=== PATIENT | male | born 1975 | race Caucasian/White ===

== ENCOUNTER 2019-07-04 09:41 | Emergency (ER) | payer OTHER ==
[~2019-07-04] VITALS: Ht 175.3 cm; Wt 96.6 kg
--- NOTE | 2019-07-04 09:58 | NUR ---
ED Nurse Note: pt walked in due to left foot pain, denies head trauma. pt stated he fell on a stair and landed on his ankle and left knee. pt able to walk with limping gait.
[2019-07-04 10:02] VITALS: BP 164/92
--- NOTE | 2019-07-04 10:15 | NUR ---
ED Nurse Note: research instrumentation technician on bedside
--- NOTE | 2019-07-04 10:20 | NUR ---
ED Nurse Note: pt was medicated as ordered by hillary. pt able to tolerate po meds. will continue to monitor
--- NOTE | 2019-07-04 10:44 | NUR ---
Note [place] in EDM - 07/04/19 at 1105 by JOSÉ MANUEL ER DISCHARGE NOTE: Patient is cleared to be discharged per ERMD, pt is aox4, on room air, with stable vital signs. pt was given dc and prescription instructions, pt was able to verbalize understanding, pt id band removed without complications. pt is able to ambulate with steady gait. pt took all belongings.
--- NOTE | 2019-07-04 10:47 | Diagnostic Imaging Report ---
EXAM: XR Left Ankle Complete, 3 or More Views CLINICAL HISTORY: TRAUMA TECHNIQUE: Frontal, lateral and oblique views of the left ankle. COMPARISON: Left foot x-rays obtained the same date. FINDINGS: Bones/joints: Unremarkable. No visible displaced ankle fracture or dislocation. Ankle mortise and talar dome appear unremarkable. Visualized joint spaces appear unremarkable. Soft tissues: Mild bimalleolar soft tissue swelling. No radiodense foreign bodies. No soft tissue gas lucencies. IMPRESSION: Mild bimalleolar soft tissue swelling.
--- NOTE | 2019-07-04 10:48 | Diagnostic Imaging Report ---
EXAM: XR Left Foot Complete, 3 or More Views CLINICAL HISTORY: TRAUMA TECHNIQUE: Frontal, lateral and oblique views of the left foot. COMPARISON: No relevant prior studies available. FINDINGS: Bones/joints: Unremarkable. No visible displaced fracture. No dislocation. No osseous erosions. Visualized joint spaces appear unremarkable. Soft tissues: Mild soft tissue swelling throughout the foot. No radiodense foreign bodies. No soft tissue gas lucencies. IMPRESSION: Mild soft tissue swelling throughout the foot. No acute displaced fracture identified. If there is continued clinical concern, follow-up x- rays, or cross-sectional imaging with CT or MRI may be considered. <MYCVCSECTION> Critical Value [employer] 07/04/19 10:52 Call From [facility] Donovan Oliva MD on 07/04 10:52 (-07: 00)
[2019-07-04] MEDS ORDERED: IBUPROFEN600 MG ORAL (11:02)
[2019-07-04 11:19] VITALS: BP 145/90
--- NOTE | 2019-07-04 11:19 | NUR ---
ER DISCHARGE NOTE: Patient is cleared to be discharged per ERMD, pt is aox4, on room air, with stable vital signs. pt was given dc and prescription instructions, pt was able to verbalize understanding, pt id band removed without complications. pt is able to ambulate with steady gait. pt took all belongings.
--- NOTE | 2019-07-04 11:34 | Emergency Room Report ---
History of Present Illness General Chief Complaint: Pain Source: Patient, Medical Record Present Illness HPI Patient presents with complaints of left foot and ankle pain reports that just prior to arrival this morning While going down few steps he missed the last step and essentially twisted his left foot Denies any knee pain denies any pelvic pain denies any lapse of consciousness pain is worse with walking and bearing weight describes the pain is 5 out of 10 Denies any neuropathy Or loss of consciousness Allergies: Coded Allergies: AMOXICILLIN (Verified Allergy, Unknown, 07/04/19) Patient History Past Medical History: see triage record Reviewed Nursing Documentation: PMH: Agreed; PSxH: Agreed Nursing Documentation-PMH Hx Hypertension: Yes Hx Neurological Problems: Yes - Peripheral Neuropathy Review of Systems All Other Systems: negative except mentioned in HPI Physical Exam Vital Signs Date Time Temp Pulse Resp B/P (MAP) Pulse Ox O2 Delivery O2 Flow Rate FiO2 07/04/19 09:43 98.1 98 18 164/92 (116) 93 Room Air Sp02 EP Interpretation: reviewed, normal General Appearance: well appearing, no apparent distress Head: normocephalic, atraumatic Eyes: bilateral eye PERRL, bilateral eye EOMI ENT: normal pharynx Neck: supple Respiratory: lungs clear Musculoskeletal: swelling - Involving the left ankle there is also some discomfort noted to the proximal dorsal foot along with the lateral malleoli region skin intact, Neurologic: alert, oriented x3, responsive Skin: other - As above Lymphatic: no adenopathy Procedures Splinting Splinting : Consent: Verbal Location: Left ankle Pre-Made Type: aircast Splint: sugar-tong Pre-Proc Neuro Vasc Exam: normal Post-Proc Neuro Vasc Exam: normal Patient Tolerated: Well Complications: None Medical Decision Making Diagnostic Impression: Primary Impression: foot sprain ER Course Given the history and presentation x-ray imaging is obtained no obvious fracture is seen Given the patient's discomfort and presentation a splint is applied Discussed regarding the need for possible repeat imaging of the discomfort continues as x-ray imaging initially can Miss acute fractures Other X-Ray Diagnostic Results Other X-Ray Diagnostic Results #1: X-Ray ordered: left Foot # of Views/Limited Vs Complete: 3 View Indication: Pain EP Interpretation: Yes Interpretation: no dislocation, no fractures, other - Soft tissue swelling Impression: Other - Soft tissue swelling Electronically Signed by: Donovan Oliva, DO Other X-Ray Diagnostic Results #2: X-Ray ordered: Left ankle # of Views/Limited Vs Complete: 3 View Indication: Pain EP Interpretation: Yes Interpretation: no dislocation, no fractures, other - soft Tissue swelling Impression: Other - Soft tissue swelling Electronically Signed by: Donovan Oliva DO Last Vital Signs Date Time Temp Pulse Resp B/P (MAP) Pulse Ox O2 Delivery O2 Flow Rate FiO2 07/04/19 11:19 98.1 98 18 145/90 93 Room Air Status: improved Disposition: HOME, SELF-CARE Condition: Improved Scripts Ibuprofen* (MOTRIN*) 600 Mg Tablet 600 MG ORAL Q8H PRN for For Pain, #20 TAB 0 Refills Prov: Donovan Oliva DO 07/04/19 Referrals: NON PHYSICIAN (PCP) [facility] Krista Mathew [facility] Patient Instructions: Ankle Sprain, [id number], Foot Sprain Additional Instructions: Patient is provided with the discharge instructions notified to follow up with primary doctor in the next 2-3 days otherwise return to the er with any worsening symptoms. Please note that this report is being documented using [employer] technology. This can lead to erroneous entry secondary to incorrect interpretation by the dictating instrument. Donovan Oliva DO Jul 04, 2019 11:34
== END 2019-07-04 11:19 | disposition home or self-care (01) ==
LOC: EMR 11:10
DX: S93.602A Unspecified sprain of left foot, initial encounter (principal); Z88.1 Allergy status to other antibiotic agents; I10 Essential (primary) hypertension; G62.9 Polyneuropathy, unspecified; X50.1XXA Overexertion from prolonged static or awkward postures, initial encounter; Y92.9 Unspecified place or not applicable; Y99.0 Civilian activity done for income or pay
CPT/HCPCS: 29515; 99284